=== PATIENT | female | born 1935 | race Caucasian/White ===

== ENCOUNTER 2023-04-11 10:39 | Observation (INO) | payer MEDICARE ==
--- NOTE | 2023-04-11 11:27 | CT ---
EXAMINATION TYPE: CT brain wo con DATE OF EXAM: 04/11/2023 COMPARISON: none HISTORY: right sided weakness/numbness CT DLP: [address] of the brain was performed. The ventricles, basal cisterns and sulci overlying the cerebral convexities demonstrate mild enlargem ent. There is no evidence for intracranial hemorrhage or sulcal effacement. There is decreased attenuation about the periventricular white matter and deep white matter of both c erebral hemispheres, compatible with chronic small vessel ischemia. Differential diagnosis does inclu de demyelination. No mass effects are seen.No midline shift. Osseous calvarium is intact. If symptoms persist consider MRI. IMPRESSION: 1. Age related atrophic and chronic small vessel ischemic change without acute intracranial process s een at this time.
--- NOTE | 2023-04-11 11:31 | XR ---
EXAMINATION TYPE: XR chest 2V DATE OF EXAM: 04/11/2023 COMPARISON: NONE HISTORY: Shortness of breath TECHNIQUE: Frontal and lateral views of the chest are obtained. FINDINGS: Scattered senescent parenchymal changes noted. Hyperinflation compatible with COPD. No evidence for infiltrate. No evidence for atelectasis. Heart size is stable. Mediastinal structures are stable and grossly unremarkable. No evidence for hilar prominence. Degenerative changes dorsal spine. IMPRESSION: 1. No evidence for acute pulmonary disease.
[2023-04-11] MEDS: SODIUM CHLORIDE 0.9% 500 ML 500 ML IV STA (11:33)
[2023-04-11 11:48] LABS: Basophils % (A) 1 %; Eosinophils # (A) 0.1 k/uL (0-0.7); Eosinophils % (A) 2 %; HCT 38.1 % (34.0-46.0); HGB 12.6 gm/dL (11.4-16.0); Lymphocytes # (A) 0.9 k/uL (1.0-4.8); Lymphocytes % (A) 19 %; MCHC 33.1 g/dL (31.0-37.0); MCV 90.7 fL (80.0-100.0); Mean Platelet Volume 7.2; Monocytes # (A) 0.3 k/uL (0-1.0); Monocytes % (A) 6 %; Neutrophils # (A) 3.3 k/uL (1.3-7.7); Neutrophils % (A) 70 %; Platelet Count 230 k/uL (150-450); WBC 4.7 k/uL (3.8-10.6)
[2023-04-11 11:56] LABS: INR 1.1 (<1.2); Prothrombin Time 11.5 sec (10.0-12.5)
--- NOTE | 2023-04-11 12:01 | CT ---
EXAMINATION TYPE: CT angio head neck DATE OF EXAM: 04/11/2023 COMPARISON: HISTORY: right sided weakness/numbness CT DLP: 1424.5 mGycm CONTRAST: Performed with IV Contrast, patient injected with 65 ml mL of Isovue 370. Combination Contrast CTA cervical carotids and [place] CTA cervical carotids with 3-D recons truction Contrast CTA of the cervical carotids was performed 3-D reconstruction imaging obtained at a separate workstation. Bilateral internal carotid arteries demonstrate significant tortuosity. Right carotid system: Mild plaque is seen of the right common carotid artery. There is mild plaque a lso noted at the carotid bulb. Estimated diameter reduction is 50%. ECA is patent. Right vertebra l artery appears unremarkable. Left carotid system: Mild plaque is seen of the left common carotid artery. There is mild plaque als o noted at the carotid bulb. Estimated diameter reduction is 50%. ECA is patent. Left vertebral ar trudy appears unremarkable. NASCET criteria was used in interpretation of this exam? 1. No significant diameter reduction to account for the patient's symptoms. CTA [place] with 3-D reconstruction Contrast CTA of the [place] was performed 3-D reconstruction imaging obtained at a separate workstation. Vertebrobasilar system as well as intracranial portions of the internal carotid arteries and their ma mi tributaries are patent. I do not see evidence for sizable aneurysm or vascular malformation. Pl ease note MRI provides greater sensitivity and specificity. Visualized brain appears grossly unremar kable. IMPRESSION: 1. No significant abnormality. NASCET criteria was used in interpretation of this exam?
[2023-04-11 12:11] LABS: Partial Thromboplastin Time 21.2 sec (22.0-30.0)
[2023-04-11 12:18] LABS: ALT 36 U/L (4-34); AST 51 U/L (14-36); African American GFR (CKD) >90 (>60 ml/min/1.73 sqM); Albumin 4.1 g/dL (3.5-5.0); Alkaline Phosphatase 96 U/L (38-126); Anion Gap 7 mmol/L; Blood Urea Nitrogen 14 mg/dL (7-17); Carbon Dioxide 25 mmol/L (22-30); Chloride 105 mmol/L (98-107); Creatine Kinase 50 U/L (30-135); Glucose 120 mg/dL (74-99); Non-African American GFR(CKD) 80 (>60 ml/min/1.73 sqM); Sodium 137 mmol/L (137-145); Total Bilirubin 0.6 mg/dL (0.2-1.3); Total Protein 7.5 g/dL (6.3-8.2)
--- NOTE | 2023-04-11 13:10 | ED ---
General Adult HPI - General Chief complaint: Neuro Symptoms/Deficit Stated complaint: Neuro sym Time Seen by Provider: 04/11/23 10:40 Source: patient, RN notes reviewed, old records reviewed Mode of arrival: ambulatory Limitations: no limitations - History of Present Illness Initial comments: This an 87-year-old female presents to the emergency department after having strokelike symptoms yesterday and again this morning. Patient states yesterday she had some slurred speech and some right arm and leg weakness. Patient states after 4 hours of rest it seemed to go away. Patient states when it came back it was after denominational this morning and she did not have any speech problems but she had problems walking because her left leg was weak and her left arm appeared to be weak. Patient states currently she has no symptoms whatsoever. Patient denies headache patient denies any visual disturbance. Patient denies any speech disturbance or numbness or weakness currently. Patient denies chest pain palpitation difficulty breathing shortness of breath. Patient is any abdominal pain patient has nausea vomiting diarrhea - Related Data Allergies Allergy/AdvReac Type Severity Reaction Status Date / Time No Known Allergies Allergy Verified 04/11/23 10:47 Review of Systems ROS Statement: Those systems with pertinent positive or pertinent negative responses have been documented in the HPI. ROS Other: All systems not noted in ROS Statement are negative. Past Medical History Past Medical History: Dementia, Hypertension Past Surgical History: No Surgical Hx Reported General Exam - General Exam Comments Initial Comments: GENERAL: Patient is well-developed and well-nourished. Patient is nontoxic and well- hydrated and is in no acute distress. ENT: Neck is soft and supple. No significant lymphadenopathy is noted. Oropharynx is clear. Moist mucous membranes. Neck has full range of motion without eliciting any pain. EYES: The sclera were anicteric and conjunctiva were pink and moist. Extraocular movements were intact and pupils were equal round and reactive to light. Eyelids were unremarkable. PULMONARY: Unlabored respirations. Good breath sounds bilaterally. No audible rales rh onchi or wheezing was noted. CARDIOVASCULAR: There is a regular rate and rhythm without any murmurs gallops or rubs. ABDOMEN: Soft and nontender with normal bowel sounds. SKIN: Skin is clear with no lesions or rashes and otherwise unremarkable. NEUROLOGIC: Patient is alert and oriented x3. Cranial nerves II through XII are grossly intact. Motor and sensory are also intact. Normal speech, volume and content. Symmetrical smile. NIH is 0 MUSCULOSKELETAL: Normal extremities with adequate strength and full range of motion. LYMPHATICS: No significant lymphadenopathy is noted PSYCHIATRIC: Normal psychiatric evaluation. Limitations: no limitations Course Vital Signs 04/11/23 04/11/23 04/11/23 10:42 11:30 11:47 Temperature 97.9 F 98.0 F Pulse Rate 62 65 66 Respiratory 18 17 16 Rate Blood Pressure 175/101 188/94 165/88 O2 Sat by Pulse 98 97 97 Oximetry 04/11/23 04/11/23 04/11/23 12:02 12:17 12:32 Temperature 97.8 F Pulse Rate 66 67 68 Respiratory 17 17 18 Rate Blood Pressure 159/86 157/87 155/84 O2 Sat by Pulse 96 95 96 Oximetry 04/11/23 12:47 Temperature 97.6 F Pulse Rate 69 Respiratory 15 Rate Blood Pressure 154/83 O2 Sat by Pulse 95 Oximetry Medical Decision Making - Medical Decision Making EKG was interpreted by myself EKG showed a sinus rhythm at 62 bpm IN was 139 QRS is 80 QT interval is 414 QTc is 418. Patient EKG shows no ST segment ovation or depression. Was pt. sent in by a medical professional or institution (, PA, VISUAL MERCHANDISING SPECIALIST, urgent care, hospital, or retirement...) When possible be specific @ -No Did you speak to anyone other than the patient for history (EMS, parent, family, police, friend...)? What history was obtained from this source @ -The granddaughter gave a lot of the history Did you review nursing and triage notes (agree or disagree)? Why? @ -I reviewed and agree with nursing and triage notes Were old charts reviewed (outside hosp., previous admission, EMS record, old EKG, old radiological studies, urgent care reports/EKG's, retirement records)? Report findings @ -I reviewed old charts and prior lab work on this patient prior radiological studies Differential Diagnosis (chest pain, altered mental status, abdominal pain women, abdominal pain men, vaginal bleeding, weakness, fever, dyspnea, syncope, headache, dizziness, GI bleed, back pain, seizure, CVA, palpatations, mental health, musculoskeletal)? @ -Differential CVA Ischemic stroke, hemorrhagic stroke, brain tumor, atypical migraine, Wernicke's encephalopathy, seizure, multiple sclerosis, meningitis, encephalitis, hypoglycemia, Guillain-Perez, electrolytes disturbance, myasthenia gravis.... This is not meant to be an all-inclusive list EKG interpreted by me (3pts min.). @ -As above X-rays interpreted by me (1pt min.). @ -None done CT interpreted by me (1pt min.). @ -CT of the brain shows no acute abnormality CTA of the brain shows no acute abnormality. U/S interpreted by me (1pt. min.). @ -None done What testing was considered but not performed or refused? (CT, X-rays, U/S, labs)? Why? @ -None What meds were considered but not given or refused? Why? @ -None Did you discuss the management of the patient with other professionals (professionals i.e. , PA, VISUAL MERCHANDISING SPECIALIST, lab, RT, psych nurse, social and human services assistant, criminal justice lawyer, teacher, police or patrol park officer, watch case polisher)? Give summary @ -I spoke with [facility] hospitalist and they agreed admit the patient under the patient I wrote admitting orders Was smoking cessation discussed for >3mins.? @ -No Was critical care preformed (if so, how long)? @ -No Were there social determinants of health that impacted care today? How? (Homelessness, low income, unemployed, alcoholism, drug addiction, transportation, low edu. Level, literacy, decrease access to med. care, fpc, rehab)? @ -No Was there de-escalation of care discussed even if they declined (Discuss DNR or withdrawal of care, Hospice)? DNR status @ -No What co-morbidities impacted this encounter? (DM, HTN, Smoking, COPD, CAD, Cancer, CVA, ARF, Chemo, Hep., AIDS, mental health diagnosis, sleep apnea, morbid obesity)? @ -None Was patient admitted / discharged? Hospital course, mention meds given and route, prescriptions, significant lab abnormalities, going to OR and other pertinent info. @ -Patient came in had a CT CTA of the head and neck and all were normal. Patient's lab work was also normal. Patient was asymptomatic throughout her stay Undiagnosed new problem with uncertain prognosis? @ -No Drug Therapy requiring intensive monitoring for toxicity (Heparin, Nitro, Insulin, Cardizem)? @ -No Were any procedures done? @ -No Diagnosis/symptom? @ -TIA Acute, or Chronic, or Acute on Chronic? @ -Acute Uncomplicated (without systemic symptoms) or Complicated (systemic symptoms)? @ -Complicated Side effects of treatment? @ -No Exacerbation, Progression, or Severe Exacerbation? @ -No Poses a threat to life or bodily function? How? (Chest pain, [place], [place], pneumonia, PE, COPD, DKA, ARF, appy, cholecystitis, CVA, Diverticulitis, Homicidal, Suicidal, threat to staff... and all critical care pts) @ -Yes if this were to progress to a stroke could lead to morbidity and mortality - Lab Data Result diagrams: 04/11/23 11:10 04/11/23 11:10 Lab Results 04/11/23 04/11/23 04/11/23 Range/Units 11:10 11:10 11:10 WBC 4.7 (3.8-10.6) k/uL RBC 4.20 (3.80-5.40) m/uL Hgb 12.6 (11.4-16.0) gm/dL Hct 38.1 (34.0-46.0) % MCV 90.7 (80.0-100.0) fL MCH 30.0 (25.0-35.0) pg MCHC 33.1 (31.0-37.0) g/dL RDW 14.0 (11.5-15.5) % Plt Count 230 (150-450) k/uL MPV 7.2 Neutrophils % 70 % Lymphocytes % 19 % Monocytes % 6 % Eosinophils % 2 % Basophils % 1 % Neutrophils # 3.3 (1.3-7.7) k/uL Lymphocytes # 0.9 L (1.0-4.8) k/uL Monocytes # 0.3 (0-1.0) k/uL Eosinophils # 0.1 (0-0.7) k/uL Basophils # 0.0 (0-0.2) k/uL PT 11.5 (10.0-12.5) sec INR 1.1 (<1.2) APTT 21.2 L (22.0-30.0) sec Sodium 137 (137-145) mmol/L Potassium 4.0 (3.5-5.1) mmol/L Chloride 105 (98-107) mmol/L Carbon Dioxide 25 (22-30) mmol/L Anion Gap 7 mmol/L BUN 14 (7-17) mg/dL Creatinine 0.69 (0.52-1.04) mg/dL Est GFR (CKD-EPI)AfAm >90 (>60 ml/min/1.73 sqM) Est GFR (CKD-EPI)NonAf 80 (>60 ml/min/1.73 sqM) Glucose 120 H (74-99) mg/dL Calcium 9.0 (8.4-10.2) mg/dL Total Bilirubin 0.6 (0.2-1.3) mg/dL AST 51 H (14-36) U/L ALT 36 H (4-34) U/L Alkaline Phosphatase 96 (38-126) U/L Creatine Kinase 50 (30-135) U/L Troponin I (0.000-0.034) ng/mL Total Protein 7.5 (6.3-8.2) g/dL Albumin 4.1 (3.5-5.0) g/dL 04/11/23 Range/Units 11:10 WBC (3.8-10.6) k/uL RBC (3.80-5.40) m/uL Hgb (11.4-16.0) gm/dL Hct (34.0-46.0) % MCV (80.0-100.0) fL MCH (25.0-35.0) pg MCHC (31.0-37.0) g/dL RDW (11.5-15.5) % Plt Count (150-450) k/uL MPV Neutrophils % % Lymphocytes % % Monocytes % % Eosinophils % % Basophils % % Neutrophils # (1.3-7.7) k/uL Lymphocytes # (1.0-4.8) k/uL Monocytes # (0-1.0) k/uL Eosinophils # (0-0.7) k/uL Basophils # (0-0.2) k/uL PT (10.0-12.5) sec INR (<1.2) APTT (22.0-30.0) sec Sodium (137-145) mmol/L Potassium (3.5-5.1) mmol/L Chloride (98-107) mmol/L Carbon Dioxide (22-30) mmol/L Anion Gap mmol/L BUN (7-17) mg/dL Creatinine (0.52-1.04) mg/dL Est GFR (CKD-EPI)AfAm (>60 ml/min/1.73 sqM) Est GFR (CKD-EPI)NonAf (>60 ml/min/1.73 sqM) Glucose (74-99) mg/dL Calcium (8.4-10.2) mg/dL Total Bilirubin (0.2-1.3) mg/dL AST (14-36) U/L ALT (4-34) U/L Alkaline Phosphatase (38-126) U/L Creatine Kinase (30-135) U/L Troponin I <0.012 (0.000-0.034) ng/mL Total Protein (6.3-8.2) g/dL Albumin (3.5-5.0) g/dL Critical Care Time Critical Care Time: Yes Total Critical Care Time: 35 Disposition Clinical Impression: Transient cerebral ischemia Disposition: ADMITTED IP TO THIS HOSP Referrals: Keiry Ordoñez MD [Primary Care Provider] - 1-2 days Time of Disposition: 13:10
[2023-04-11] MEDS: ASPIRIN 325 MG TAB PO STA (13:29)
[2023-04-11] MEDS ORDERED: NALOXONE 0.4 MG/ML 1 ML VIAL IV PRN (13:40)
--- NOTE | 2023-04-11 14:10 | P.HPIM ---
History of Present Illness H&P Date: 04/11/23 Chief Complaint: Right-sided weakness * 87-year-old patient with past medical history significant for hypertension, hyperlipidemia presents to the emergency department after strokelike symptoms. Patient states initially his symptoms started yesterday when she had difficulty moving her right leg. This was accompanied by some slurred speech right arm and leg weakness. Symptoms improved after patient rested for few hours. Patient said earlier today this morning when she was coming back from discharge she noted that she again have trouble in her leg however this time the left leg appeared to be weak. Patient denied any associated headache, blurred vision, nausea, vomiting or numbness. Workup initiated in the ER included a CT head as well as CT angio head and neck which was negative for large vessel occlusion. CBC obtained showed WBC 4.7 hemoglobin 12.6. Count of 230 INR 1.1 serum chemistries sodium 137 potassium 4, dicer 25 BUN 14 creatinine 0.69 ALT 36 AST 51. Patient to be admitted to medical floor with workup to rule out TIA REVIEW OF SYSTEMS: Lower extremity weakness, speech impairment resolved CONSTITUTIONAL: No fever, no malaise, no fatigue. HEENT: No recent visual problems or hearing problems. Denied any sore throat. CARDIOVASCULAR: No chest pain, orthopnea, PND, no palpitations, no syncope. PULMONARY: No shortness of breath, no cough, no hemoptysis. GASTROINTESTINAL: No diarrhea, no nausea, no vomiting, no abdominal pain. NEUROLOGICAL: Lower extremity weakness, speech impairment resolved HEMATOLOGICAL: Denies any bleeding or petechiae. GENITOURINARY: Denies any burning micturition, frequency, or urgency. MUSCULOSKELETAL/RHEUMATOLOGICAL: Denies any joint pain, swelling, or any muscle pain. ENDOCRINE: Denies any polyuria or polydipsia. PHYSICAL EXAMINATION: GENERAL: The patient is alert and oriented x3, not in any acute distress. Well developed, well nourished. HEENT: Pupils are round and equally reacting to light. EOMI. No scleral icterus. No conjunctival pallor. Normocephalic, atraumatic. No pharyngeal erythema. No thyromegaly. CARDIOVASCULAR: S1 and S2 present. No murmurs, rubs, or gallops. PULMONARY: Chest is clear to auscultation, no wheezing or crackles. ABDOMEN: Soft, nontender, nondistended, normoactive bowel sounds. No palpable organomegaly. MUSCULOSKELETAL: No joint swelling or deformity. EXTREMITIES: No cyanosis, clubbing, or pedal edema. NEUROLOGICAL: Gross neurological examination did not reveal any focal deficits. SKIN: No rashes. Past Medical History Past Medical History: Dementia, Hypertension Past Surgical History: No Surgical Hx Reported Medications and Allergies Allergies Allergy/AdvReac Type Severity Reaction Status Date / Time No Known Allergies Allergy Verified 04/11/23 10:47 Physical Exam Vitals: Vital Signs Temp Pulse Resp BP Pulse Ox 04/11/23 13:30 69 16 169/89 96 04/11/23 13:15 98.0 F 65 18 168/89 96 04/11/23 13:05 67 16 163/79 95 04/11/23 12:47 97.6 F 69 15 154/83 95 04/11/23 12:32 68 18 155/84 96 04/11/23 12:17 67 17 157/87 95 04/11/23 12:02 97.8 F 66 17 159/86 96 04/11/23 11:47 66 16 165/88 97 04/11/23 11:30 98.0 F 65 17 188/94 97 04/11/23 10:42 97.9 F 62 18 175/101 98 Intake and Output 04/10/23 04/11/23 04/11/23 22:59 06:59 14:59 Other: Weight 63.911 kg Results CBC & Chem 7: 04/11/23 11:10 04/11/23 11:10 Labs: Abnormal Lab Results - Last 24 Hours (Table) 04/11/23 04/11/23 04/11/23 Range/Units 11:10 11:10 11:10 Lymphocytes # 0.9 L (1.0-4.8) k/uL APTT 21.2 L (22.0-30.0) sec Glucose 120 H (74-99) mg/dL AST 51 H (14-36) U/L ALT 36 H (4-34) U/L Assessment and Plan Assessment: Assessment and plan Right lower extremity weakness rule out CVA Hypertension Hyperlipidemia * Workup initiated including CT head, CTA angio head and neck negative for large vessel occlusion. Neurology consulted, continue neurochecks continue aspirin, Lipitor * In regards to hypertension allow permissive hypertension, continue to monitor vitals * In regards to hyperlipidemia continue Lipitor * Physical therapy Occupational Therapy evaluation * CODE STATUS is full code Time with Patient: Greater than 30
[2023-04-11] MEDS: SODIUM CHLORIDE 0.9% 1,000 ML IV SCH (14:26)
[2023-04-11] MEDS: ATORVASTATIN 40 MG TAB PO SCH (20:34)
[2023-04-11 20:53] VITALS: RESP 16
[2023-04-12] MEDS: ASPIRIN 325 MG TAB PO SCH (08:45)
[2023-04-12] MEDS: ENOXAPARIN 40 MG/0.4 ML SYRINGE SQ SCH (08:45)
[2023-04-12 09:23] LABS: LDL Cholesterol,Calculated 152.9 mg/dL (0.0-131.0); VLDL Calculation 17.64 mg/dL (5.00-40.00)
[2023-04-12] MEDS: ONDANSETRON 4 MG/2 ML VIAL IVP PRN (10:01)
--- NOTE | 2023-04-12 11:59 | P.CNNES ---
History of Present Illness Consult date: 04/12/23 Requesting physician: Sharad Blackwell Reason for Consult: TIA History of Present Illness: Patient is a 87-year-old right handed female with history of hypertension, hyperlipidemia, came to the hospital yesterday at 10:39 AM for symptoms of possible stroke. Patient states her stroke symptoms started 2 days ago, on . She woke up at 8 in the morning and was fine. However at around 10 or 11 AM, she noticed that she has loss of control of her right arm and right leg. She took a nap from 12 noon until 3 PM and when she woke up, she was feeling much better although not back to baseline. She went to sleep at 8 PM. Next morning, on Wednesday, which is yesterday, she woke up and was feeling better, but still slight symptoms on the right side. However when she went to the adventism, she started dragging her right leg and noticed some slurred speech, therefore she was brought to the hospital. Vital signs on arrival blood pressure 175/101, pulse rate 62 temperature 97.9. Blood test shows normal CBC, PT PTT, normal basic metabolic panel. Renal functions are normal. AST 51, ALT 36, both mildly elevated. Troponin is negative, CK is [address] head revealed age-related atrophic and chronic small vessel ischemic change without acute intracranial process. I personally reviewed CT head, agree with the findings. On my review, there is evidence of an old lacunar in the left anterior basal ganglia region. Chest x-ray and EKG are normal. Patient takes lisinopril 10 mg twice daily and multivitamins. Patient walks by herself, does not use any assistive device. She lives with her son and his future . Patient has history of hypertension, hyperlipidemia, but she does not take any cholesterol medication, as she saw the potential side effects and got concerned and did not take cholesterol medication. She admits to taking niacin tablets, but her home medication list does not state. She denies diabetes, tobacco or alcohol use. Patient does not take any antiplatelet medication at home. Patient states that today she feels slightly more difficulty with walking, unsteady and dizzy while walking. She can hardly right with the right hand. Review of Systems Constitutional: Denies chills, Denies fever Eyes: denies blurred vision, denies diplopia, denies pain, denies loss of vision Ears: deny: decreased hearing, ear discharge Ears, nose, mouth and throat: Denies headache, Denies sore throat, Denies vertigo Cardiovascular: Reports lightheadedness, Denies chest pain, Denies shortness of breath Respiratory: Denies cough, Denies excessive sputum Gastrointestinal: Reports nausea, Denies abdominal pain, Denies diarrhea, Denies vomiting Genitourinary: Denies dysuria, Denies hematuria, Denies urgency, Denies urinary frequency Musculoskeletal: Denies low back pain, Denies myalgias, Denies neck pain Integumentary: Denies pruritus, Denies rash Neurological: Reports as per HPI Psychiatric: Reports memory loss, Denies anxiety, Denies depression Hematologic/Lymphatic: Denies easy bleeding, Denies easy bruising Past Medical History Past Medical History: Hyperlipidemia, Hypertension History of Any Multi-Drug Resistant Organisms: None Reported Past Surgical History: No Surgical Hx Reported Past Psychological History: No Psychological Hx Reported Smoking Status: Never smoker Medications and Allergies Home Medications Medication Instructions Recorded Confirmed Type Multivitamins, Thera [Multivitamin 1 tab PO DAILY 04/11/23 04/11/23 History (formulary)] lisinopriL [Zestril] 10 mg PO BID 04/11/23 04/11/23 History Allergies Allergy/AdvReac Type Severity Reaction Status Date / Time No Known Allergies Allergy Verified 04/11/23 14:58 Physical Examination - Vital Signs Vital Signs: Vital Signs Temp Pulse Pulse Resp BP BP BP 04/12/23 07:00 98.0 F 60 16 148/76 04/12/23 00:42 97.9 F 68 16 164/77 04/11/23 19:25 97.9 F 68 16 185/84 04/11/23 17:37 98.0 F 66 15 182/76 04/11/23 17:09 98.7 F 66 18 172/84 04/11/23 16:12 98.0 F 65 16 168/86 04/11/23 15:12 66 14 147/78 04/11/23 14:32 65 186 H 150/74 04/11/23 14:15 97.8 F 68 18 150/80 04/11/23 13:30 69 16 169/89 04/11/23 13:15 98.0 F 65 18 168/89 04/11/23 13:05 67 16 163/79 04/11/23 12:47 97.6 F 69 15 154/83 04/11/23 12:32 68 18 155/84 04/11/23 12:17 67 17 157/87 04/11/23 12:02 97.8 F 66 17 159/86 04/11/23 11:47 66 16 165/88 04/11/23 11:30 98.0 F 65 17 188/94 Pulse Ox 04/12/23 07:00 97 04/12/23 00:42 97 04/11/23 19:25 95 04/11/23 17:37 97 04/11/23 17:09 97 04/11/23 16:12 95 04/11/23 15:12 95 04/11/23 14:32 96 04/11/23 14:15 96 04/11/23 13:30 96 04/11/23 13:15 96 04/11/23 13:05 95 04/11/23 12:47 95 04/11/23 12:32 96 04/11/23 12:17 95 04/11/23 12:02 96 04/11/23 11:47 97 04/11/23 11:30 97 Intake and Output 04/11/23 04/12/23 04/12/23 22:59 06:59 14:59 Other: # Voids 2 1 Weight 63.911 kg Patient is an elderly female, very pleasant, in no acute distress. Patient is alert awake oriented to time place and person. Speech is mildly dysarthric and language functions are normal. Patient can name and repeat very well. No aphasia, although patient has mild dysarthria. Attention, concentration and fund of knowledge is adequate. On cranial nerve examination, pupils are equal, round and reacting to light, visual gonzales are full on confrontation, with no neglect on double simultaneous stimulation. Extraocular muscles are intact with no nystagmus. Patient has mild right facial asymmetry. Her tongue protrudes to the midline. Palatal elevation and sensation normal, hearing and shoulder shrug normal, facial sensation normal. On muscle strength testing, there is no pronator drift and the strength is normal in arms and legs distally and proximally, except right plug and mold finisher which may be 5-. Deep tendon reflexes are symmetric 1 at the biceps, 1 brachioradialis, 3 at the knees, 1+ ankles and plantars are downgoing bilaterally. Sensory to touch is equal with no neglect on double simultaneous stimulation. Cerebellar function showed ataxia for [id number] testing only on the right side, but not on the left. No dysdiadochokinesia. No ataxia for [id number] testing on either side. Tone and bulk of muscles normal. Gait deferred.. On general examination, there is no carotid bruit or murmur, S1-S2 audible. Chest is clear on consultation. Abdomen is soft nontender. No organomegaly, bowel sounds present. Peripheral pulses are present. No peripheral edema. Results - Laboratory Findings CBC and BMP: 04/11/23 11:10 04/11/23 11:10 Abnormal Lab Findings: Abnormal Labs 04/11/23 04/11/23 04/11/23 11:10 11:10 11:10 Lymphocytes # 0.9 L APTT 21.2 L Glucose 120 H AST 51 H ALT 36 H Cholesterol LDL Cholesterol, Calc HDL Cholesterol 04/11/23 11:10 Lymphocytes # APTT Glucose AST ALT Cholesterol 248.00 H LDL Cholesterol, Calc 152.9 H HDL Cholesterol 77.50 H Assessment and Plan Assessment: * Probable acute ischemic stroke manifesting with slurred speech, and mild right hemiparesis. Her current NIH stroke scale is 3. Patient was not a candidate for tPA, as she came outside the window for tPA. * Hypertension * Hyperlipidemia Plan: MRI of the brain without contrast, evaluate for acute CVA 2-D echo with bubble study to rule out PFO CTA head and neck showed: Mild plaque noted at the bilateral carotid bulb. Estimated diameter reduction is 50% on either side. Vertebral arteries are patent. Fasting a.m. lipid panel with cholesterol 248, LDL 152, HDL 77 and triglycerides 88. Patient was not taking any statins. Agree with starting Lipitor 40 mg daily. Hemoglobin A1c Permissive hypertension for next 24-48 hours Patient was not taking any antiplatelet medication. Patient started on aspirin 325 mg daily. As she feels her symptoms are slightly worse, we will also add Plavix 75 mg daily for 21 days. Neuro checks. Telemetry monitoring rule out any arrhythmia PT, OT, speech therapy DVT prophylaxis: Heparin 5000 units subcu every 8 hours Discussed with patient's daughter as well. Neurology will continue to follow. Thank you for the consult.
[2023-04-12] MEDS: CLOPIDOGREL 75 MG TAB PO SCH (12:46)
--- NOTE | 2023-04-12 13:00 | P.PN ---
Subjective Progress Note Date: 04/12/23 * 87-year-old patient with past medical history significant for hypertension, hyperlipidemia presents to the emergency department after strokelike symptoms. Patient states initially his symptoms started yesterday when she had difficulty moving her right leg. This was accompanied by some slurred speech right arm and leg weakness. Symptoms improved after patient rested for few hours. Patient said earlier today this morning when she was coming back from discharge she noted that she again have trouble in her leg however this time the left leg appeared to be weak. Patient denied any associated headache, blurred vision, nausea, vomiting or numbness. Workup initiated in the ER included a CT head as well as CT angio head and neck which was negative for large vessel occlusion. CBC obtained showed WBC 4.7 hemoglobin 12.6. Count of 230 INR 1.1 serum chemistries sodium 137 potassium 4, dicer 25 BUN 14 creatinine 0.69 ALT 36 AST 51. Patient to be admitted to medical floor with workup to rule out TIA * 04/12/2023: Patient seen and evaluated at bedside, daughter at bedside patient does complain of dysmetria especially right upper extremity. MRI brain ordered, echocardiogram ordered, appreciate input from neurology continue aspirin, Lipitor, Plavix. Will need physical therapy Occupational Therapy evaluation REVIEW OF SYSTEMS: Lower extremity weakness resolved, speech impairment resolved CONSTITUTIONAL: No fever, no malaise, no fatigue. HEENT: No recent visual problems or hearing problems. Denied any sore throat. CARDIOVASCULAR: No chest pain, orthopnea, PND, no palpitations, no syncope. PULMONARY: No shortness of breath, no cough, no hemoptysis. GASTROINTESTINAL: No diarrhea, no nausea, no vomiting, no abdominal pain. NEUROLOGICAL: Lower extremity weakness resolved, speech impairment resolved HEMATOLOGICAL: Denies any bleeding or petechiae. GENITOURINARY: Denies any burning micturition, frequency, or urgency. MUSCULOSKELETAL/RHEUMATOLOGICAL: Denies any joint pain, swelling, or any muscle pain. ENDOCRINE: Denies any polyuria or polydipsia. PHYSICAL EXAMINATION: GENERAL: The patient is alert and oriented x3, not in any acute distress. Well developed, well nourished. HEENT: Pupils are round and equally reacting to light. EOMI. CARDIOVASCULAR: S1 and S2 present. Murmur appreciated. PULMONARY: Chest is clear to auscultation, no wheezing or crackles. ABDOMEN: Soft, nontender, nondistended, normoactive bowel sounds. No palpable organomegaly. MUSCULOSKELETAL: No joint swelling or deformity. EXTREMITIES: No cyanosis, clubbing, or pedal edema. NEUROLOGICAL: Motor strength is 4 x 5 right upper extremity 5 x 5 right lower extremity, motor strength is 5 x 5 left upper and lower extremity SKIN: No rashes. Objective - Vital Signs Vital signs: Vital Signs Temp 98.0 F 04/12/23 07:00 Pulse 60 04/12/23 07:00 Resp 16 04/12/23 07:00 BP 148/76 04/12/23 07:00 Pulse Ox 97 04/12/23 07:00 FiO2 Intake & Output 04/11/23 04/12/23 04/12/23 18:59 06:59 18:59 Weight 63.911 kg Other: # Voids 1 - Labs CBC & Chem 7: 04/11/23 11:10 04/11/23 11:10 Labs: Abnormal Lab Results - Last 24 Hours (Table) 04/11/23 Range/Units 11:10 Cholesterol 248.00 H (0.00-200.00) mg/dL LDL Cholesterol, Calc 152.9 H (0.0-131.0) mg/dL HDL Cholesterol 77.50 H (40.00-60.00) mg/dL Assessment and Plan Assessment: Assessment and plan Right lower extremity weakness/slurred speech rule out CVA Hypertension Hyperlipidemia * Workup initiated including CT head, CTA angio head and neck negative for large vessel occlusion. Neurology consulted, continue neurochecks, MRI brain ordered continue aspirin, Lipitor * In regards to hypertension resume lisinopril 04/12/2023 * In regards to hyperlipidemia continue Lipitor * Physical therapy Occupational Therapy evaluation needed for discharge disposition * CODE STATUS is full code Time with Patient: Greater than 30
[2023-04-12] MEDS: lisinopriL 10 MG TAB PO SCH (13:44)
[2023-04-12] MEDS: MELATONIN 5 MG TABLET PO PRN (23:21)
[2023-04-12] MEDS: ACETAMINOPHEN TAB 325 MG TAB PO PRN (23:38)
--- NOTE | 2023-04-13 07:26 | CA ---
Transthoracic Echo Report Name: Alexandria Dominguez Age: 87 Gender: F : 1935 Exam Date: 04/12/2023 15:32 Exam Location: [facility] Ht (in): 64 Wt (lb): 140 Ordering Physician: Fernando Zhang MD Attending/Referring Phys: Clinical Nursing Instructor Ron Yoon RD Procedure CPT: Indications: tia Cardiac Hx: Technical Quality: Fair Contrast 1: Total Dose (mL): Contrast 2: Total Dose (mL): MEASUREMENTS (Male / Female) Normal Values 2D ECHO LV Diastolic Diameter PLAX 4.2 cm 4.2 - 5.9 / 3.9 - 5.3 cm LV Systolic Diameter PLAX 2.4 cm IVS Diastolic Thickness 0.9 cm 0.6 - 1.0 / 0.6 - 0.9 cm LVPW Diastolic Thickness 0.9 cm 0.6 - 1.0 / 0.6 - 0.9 cm LV Relative Wall Thickness 0.4 LVOT Diameter 2.0 cm Aortic Root Diameter 3.2 cm LA Systolic Diameter LX 1.8 cm 3.0 - 4.0 / 2.7 - 3.8 cm LV Diastolic Volume MOD BP 38.9 cm??? 67 - 155 / 56 - 104 cm??? LV Systolic Volume MOD BP 13.8 cm??? 22 - 58 / 19 - 49 cm??? LV Ejection Fraction MOD BP 64.4 % >= 55 % LV Cardiac Index MOD BP 1059.0 cm???/min???m??? LV Diastolic Volume MOD 4C 45.0 cm??? LV Systolic Volume MOD 4C 18.7 cm??? LV Ejection Fraction MOD 4C 58.4 % LV Cardiac Index MOD 4C 1112.1 cm???/min???m??? LV Diastolic Length 4C 6.9 cm LV Systolic Length 4C 5.8 cm LV Diastolic Volume MOD 2C 33.7 cm??? LV Systolic Volume MOD 2C 10.4 cm??? LV Ejection Fraction MOD 2C 69.1 % LV Cardiac Index MOD 2C 985.6 cm???/min???m??? LV Diastolic Length 2C 7.0 cm LV Systolic Length 2C 5.8 cm LA Volume 34.3 cm??? 18 - 58 / 22 - 52 cm??? LA Volume Index 20.1 cm???/m??? 16 - 28 cm???/m??? DOPPLER AV Peak Velocity 265.5 cm/s AV Peak Gradient 28.2 mmHg AV Mean Velocity 191.3 cm/s AV Mean Gradient 16.7 mmHg AV Velocity Time Integral 60.7 cm AI Peak Velocity 325.7 cm/s AI Peak Gradient 42.4 mmHg AI Pressure Half Time 710.6 ms LVOT Peak Velocity 94.3 cm/s LVOT Peak Gradient 3.6 mmHg LVOT Velocity Time Integral 26.4 cm LVOT Stroke Volume 85.3 cm??? LVOT Stroke Volume Index 50.7 ml/m??? LVOT Cardiac Index 3607.0 cm???/min???m??? AV Area Cont Eq vti 1.4 cm??? AV Area Cont Eq pk 1.1 cm??? MV Peak Velocity 139.1 cm/s MV Peak Gradient 7.7 mmHg MV Mean Velocity 65.8 cm/s MV Mean Gradient 2.3 mmHg MV Velocity Time Integral 45.5 cm Mitral E Point Velocity 97.4 cm/s Mitral A Point Velocity 121.6 cm/s Mitral E to A Ratio 0.8 MV Deceleration Time 328.4 ms MV E' Velocity 6.8 cm/s Mitral E to MV E' Ratio 14.3 TR Peak Velocity 233.1 cm/s TR Peak Gradient 21.7 mmHg Right Ventricular Systolic Press 26.7 mmHg PV Peak Velocity 93.9 cm/s PV Peak Gradient 3.5 mmHg FINDINGS Left Ventricle Normal LV size and wall thickness. Left ventricular ejection fraction is estimated at 55-60 %.normal left ventricular wall motion. Right Ventricle Normal right ventricular size. Right Atrium Normal right atrial size. Left Atrium Normal left atrial size. Negative agitated saline study. Mitral Valve Moderate MV calcification. No mitral stenosis. Mild mitral regurgitation. Aortic Valve Moderate AV calcification. AV peak gradient= 28.2mmHg. Mean gradient= 16.7mmHg. mild to moderate AI. Mild aortic stenosis Tricuspid Valve Structurally normal tricuspid valve. Mild TR. Pulmonic Valve Pulmonic valve not well visualized. No pulmonic regurgitation. Pericardium No pericardial effusion. Aorta Normal size aortic root. CONCLUSIONS Negative bubble study with no evidence of shunting. Normal left ventricular size and systolic function Mild mitral and tricuspid regurgitation Mild to moderate aortic regurgitation and mild aortic stenosis Previewed by: Dr. Farhad Duncan MD (Electronically Signed) Final Date: 13 April 2023 07:25
[2023-04-13 08:36] VITALS: TEMP 98
[2023-04-13 08:52] LABS: BUN/Creat Ratio 14.75 Ratio (12.00-20.00); Blood Urea Nitrogen 11.8 mg/dL (9.0-27.0); Calcium 8.6 mg/dL (8.7-10.3); Carbon Dioxide 24.5 mmol/L (21.6-31.8); Chloride 105 mmol/L (96-109); Glucose 96 mg/dL (70-110); Potassium 3.7 mmol/L (3.5-5.5); Sodium 142 mmol/L (135-145)
--- NOTE | 2023-04-13 11:05 | MR ---
EXAMINATION TYPE: MR brain wo con DATE OF EXAM: 04/13/2023 COMPARISON: NONE HISTORY: Paresthesia, TIA. TECHNIQUE: T1-weighted sagittal, T2, FLAIR, and diffusion axial, and T2 coronal coronal views of the brain are submitted. FINDINGS: There is diffusion restriction within the left basal ganglia extending into the centrum semiovale com patible with acute ischemia. Measures approximately 1.2 cm in AP dimension. No mass effect. Moderate degenerative change. Additional focal confluent areas of abnormal signal in the white matter are nonspecific but most typical of remote microvascular ischemia. Changes of chronic sinusitis with nasal septal deviation. Orbits are symmetric. Additional punctate a reas of abnormal signal involving the basal ganglia may represent tiny remote lacunar infarct or prom inent Virchow-Leighton spaces. Report called to the patients nurse Luis F at 11:00 AM 04/13/2023. Craniocervical junction maintained. Sella turcica has a normal appearance. IMPRESSION: 1. There is a small area of acute ischemia involving the left basal ganglia and deep white matter/edda trum semiovale.
[2023-04-13 12:35] VITALS: BP 146/77; PULSE 74
[2023-04-14] MEDS ORDERED: ASPIRIN 81 MG PO SCH (09:00)
--- NOTE | 2023-04-15 04:30 | P.DS ---
Providers Date of admission: 04/11/23 13:11 Expected date of discharge: 04/13/23 Attending physician: Neena Eli Consults: 04/11/23 13:11 Consult Physician Routine Consulting Provider: Jose Silva Consult Reason/Comments: TIA Do you want consulting provider notified?: Yes Primary care physician: Keiry Ordoñez Hospital Course: Final diagnosis Right lower extremity weakness/slurred speech secondary to acute CVA Hypertension Hyperlipidemia GI prophylaxis DVT prophylaxis Full code Discharge disposition Patient is being discharged in a stable condition with guarded prognosis to home. Patient will follow-up with Dr. Ordoñez in the outpatient setting upon discharge. Patient is to continue with outpatient follow-up with neurology as scheduled. Total time taken is greater than 35 minutes. Hospital course This is a 87-year-old female who was recently admitted with right-sided weakness and slurring of speech with concerns of CVA versus TIA. Patient had resolution of symptoms and underwent neurological workup including MRI of the brain which confirmed acute CVA. Patient to continue with neurology follow-up in the outpatient setting and current medications. Patient also takes a number of dytz-[id number]-[id number] herbal supplements and discussed with the patient along with daughter at the bedside with concerns of overmedicating and also concerns of reactions with other medications recommending holding all supplements other than a multivitamin and discussing further with primary care provider. Patient was evaluated by physical therapy and arranging for home care in the outpatient setting. Patient has been cleared by consultations for discharge. Please refer to consultation notes for further HPI. Patient being started on statin therapy along with aspirin 162 mg and recommend close monitoring of cholesterol. Patient has been instructed to follow-up with primary care provider on discharge. Currently no reports of chest pain, shortness of breath, or palpitations. Patient is afebrile. No reports of nausea or vomiting and patient is tolerating diet. Patient will be discharged home today. Guarded prognosis Physical exam: Gen: This is a 87-year-old female who is awake, alert and oriented x 3, well- developed, well-nourished HEENT: Head is atraumatic, normocephalic. Pupils equal, round. Sclerae is anicteric. NECK: Supple. No JVD. No lymphadenopathy. No thyromegaly. LUNGS: Clear to auscultation. No wheezes or rhonchi. No intercostal retractions. HEART: Regular rate and rhythm. No murmur. ABDOMEN: Soft. Bowel sounds are present. No masses. No tenderness. EXTREMITIES: No pedal edema. No calf tenderness. NEUROLOGICAL: Patient is awake, alert and oriented x3. Cranial nerves 2 through 12 are grossly intact. Mild generalized weakness Please refer to medication reconciliation sheet for a list of medications. The impression and plan of care has been dictated by Kim Valadez, Nurse Practitioner as directed. Dr. Sreedhar MD I have performed a history and examination and MDM of this patient, discussed the same with the dictator, and agree with the dictator's assessment and plan as written ,documented as a scribe. Based on total visit time, I have performed more than 50% of the visit. Patient Condition at Discharge: Good Plan - Discharge Summary New Discharge Prescriptions: New Acetaminophen Tab [Tylenol] 650 mg PO Q6HR PRN tab PRN Reason: Mild Pain Or Fever > 100.5 Ondansetron Odt [Zofran Odt] 4 mg PO Q8HR PRN #20 tab PRN Reason: Nausea Aspirin 162 mg PO DAILY 30 Days #60 tab Atorvastatin [Lipitor] 40 mg PO HS #30 tab Clopidogrel [Plavix] 75 mg PO DAILY 21 Days #21 tab Continue lisinopriL [Zestril] 10 mg PO BID Multivitamins, Thera [Multivitamin (formulary)] 1 tab PO DAILY Discharge Medication List Multivitamins, Thera [Multivitamin (formulary)] 1 tab PO DAILY 04/11/23 [History] lisinopriL [Zestril] 10 mg PO BID 04/11/23 [History] Acetaminophen Tab [Tylenol] 650 mg PO Q6HR PRN tab 04/13/23 [Rx] Aspirin 162 mg PO DAILY 30 Days #60 tab 04/13/23 [Rx] Atorvastatin [Lipitor] 40 mg PO HS #30 tab 04/13/23 [Rx] Clopidogrel [Plavix] 75 mg PO DAILY 21 Days #21 tab 04/13/23 [Rx] Ondansetron Odt [Zofran Odt] 4 mg PO Q8HR PRN #20 tab 04/13/23 [Rx] Follow up Appointment(s)/Referral(s): [facility], [NON-STAFF] - 1 Week Kira Matthews MD [Medical Doctor] - 1 Week (please call and make appointment, (new patient) ) Keiry Ordoñez MD [Primary Care Provider] - 04/15/23 11:00 am Patient Instructions/Handouts: Stroke (DC), Stroke (GEN) Activity/Diet/Wound Care/Special Instructions: Activity limited until follow-up Follow-up with primary care provider on discharge Follow-up neurology outpatient Continue taking medications only as prescribed Hold other herbal supplements and continue with multivitamin and discuss further with primary care provider Continue taking statin for high cholesterol and avoid niacin and follow-up with Dr. Ordoñez regarding repeat labs in the next few months to monitor a fasting lipid panel Discharge Disposition: HOME WITH HOME HEALTH SERVICES
== END 2023-04-13 13:59 | disposition home health service (06) ==
LOC: EC 10:39 → 6NMEDSUR 13:11
PROVIDERS: ADMIT Hospitalist; ATTEND Hospitalist
DX: G45.9 Transient cerebral ischemic attack, unspecified (principal); R47.81 Slurred speech; M62.81 Muscle weakness (generalized); R29.703 NIHSS score 3; F03.90 Unspecified dementia, unspecified severity, without behavioral disturbance, psychotic disturbance, mood disturbance, and anxiety; I10 Essential (primary) hypertension; E78.5 Hyperlipidemia, unspecified; Z79.899 Other long term (current) drug therapy
CPT/HCPCS: 96361; 96372; 96374; 96375; 99285; 36415; 93005; 93306; 97162; 97166; 92523; 80061; 80053; 80048; 82607; 82550; 82746; 84484; 85025; 85610; 85730; 83036; 71046; 70496; 70450; 70498; 70551; G0378 ×3; J2405 ×2; J1650 ×2; Q9967

== ENCOUNTER 2023-07-24 20:25 | Inpatient (IN) | payer MEDICARE ==
[2023-07-24] MEDS: MECLIZINE 12.5 MG TAB PO STA (21:43)
[2023-07-24] MEDS: hydrALAZINE HCL 20 MG/ML 1 ML VIAL IVP STA ×2 (21:43→22:55)
[2023-07-24] MEDS: ONDANSETRON 4 MG/2 ML VIAL IVP STA (21:44)
[2023-07-24] MEDS: SODIUM CHLORIDE 0.9% 500 ML 500 ML IV STA (21:44)
--- NOTE | 2023-07-24 21:47 | CT ---
EXAMINATION TYPE: CT brain wo con CT DLP: 1228.5 mGycm, Automated exposure control for dose reduction was used. DATE OF EXAM: 07/24/2023 9:12 PM COMPARISON: 04/11/2023.. CLINICAL INDICATION:Female, 87 years old with history of dizziness, dizziness TECHNIQUE: Brain: Axial CT images of the brain were obtained with coronal and sagittal reformats created and rev iewed. Contrast used: None. Oral contrast used: None. FINDINGS: Brain: Extra-axial spaces: No abnormal extra-axial fluid collections. Ventricular system: Within normal limits Cerebral parenchyma: New from 04/11/2023 hypodense area in the left handley radiata. No acute intraparen chymal hemorrhage or mass effect. The mcconnell-white junction is well differentiated. Cerebellum: Unremarkable. Mass effect: No evidence of midline shift. Intracranial vasculature: unremarkable Soft tissues: Normal. Calvarium/osseous structures: No depressed skull fracture. Paranasal sinuses and mastoid air cells: Mild scattered paranasal sinus disease. Visualized orbits: Orbital contents are intact. IMPRESSION: New from 04/11/2023 hypodense area in the left handley radiata further evaluation with MRI recommended. Findings compatible with age-indeterminate CVA
[2023-07-24 21:48] LABS: Basophils % (A) 1 %; Eosinophils # (A) 0.1 k/uL (0-0.7); Eosinophils % (A) 1 %; HCT 34.7 % (34.0-46.0); HGB 11.3 gm/dL (11.4-16.0); Lymphocytes # (A) 0.7 k/uL (1.0-4.8); Lymphocytes % (A) 15 %; MCH 29.5 pg (25.0-35.0); MCHC 32.7 g/dL (31.0-37.0); MCV 90.4 fL (80.0-100.0); Mean Platelet Volume 7.3; Monocytes # (A) 0.3 k/uL (0-1.0); Monocytes % (A) 6 %; Neutrophils # (A) 3.7 k/uL (1.3-7.7); Neutrophils % (A) 75 %; Platelet Count 253 k/uL (150-450); RBC 3.84 m/uL (3.80-5.40); RDW 14.3 % (11.5-15.5); WBC 4.9 k/uL (3.8-10.6)
--- NOTE | 2023-07-24 21:50 | XR ---
EXAMINATION TYPE: XR chest 2V DATE OF EXAM: 07/24/2023 9:13 PM CLINICAL INDICATION:Female, 87 years old with history of dizziness; [facility] COMPARISON: Chest radiographs from 04/11/2023. TECHNIQUE: XR chest 2V Frontal and lateral views of the chest. FINDINGS: Lungs/Pleura: There is flattening of the diaphragm with increased lucency of the lungs. No evidence o f pneumothorax, pleural effusion or focal consolidation. Right upper lobe calcified granuloma unchang ed from prior. Pulmonary vascularity: Unremarkable. Heart/mediastinum: Cardiomediastinal silhouette is unremarkable. Musculoskeletal: No acute osseous pathology. IMPRESSION: No acute cardiopulmonary disease/process. Right upper lung calcified granuloma. COPD changes.
[2023-07-24 21:55] LABS: ALT 33 U/L (4-34); AST 40 U/L (14-36); African American GFR (CKD) 81 (>60 ml/min/1.73 sqM); Albumin 4.1 g/dL (3.5-5.0); Alkaline Phosphatase 107 U/L (38-126); Anion Gap 6 mmol/L; Blood Urea Nitrogen 21 mg/dL (7-17); Calcium 9.1 mg/dL (8.4-10.2); Carbon Dioxide 24 mmol/L (22-30); Chloride 104 mmol/L (98-107); Glucose 123 mg/dL (74-99); Non-African American GFR(CKD) 70 (>60 ml/min/1.73 sqM); Sodium 134 mmol/L (137-145); Total Bilirubin 0.6 mg/dL (0.2-1.3); Total Protein 7.2 g/dL (6.3-8.2)
[2023-07-24 22:14] LABS: Amorphous Sediment,Urine Rare /hpf; Appearance,Urine Clear (Clear); Bacteria,Urine Many /hpf; Bilirubin,Urine Negative (Negative); Blood,Urine Negative (Negative); Color,Urine Colorless; Glucose,Urine (UA) Negative (Negative); Ketones,Urine Negative (Negative); Leukocyte Esterase,Urine Large (Negative); Nitrite,Urine Negative (Negative); Protein,Urine Negative (Negative); RBC,Urine 1 /hpf (0-5); Specific Gravity,Urine 1.007 (1.001-1.035); Squamous Epithelial Cell,Urine 2 /hpf (0-4); Urobilinogen,Urine <2.0 mg/dL (<2.0); WBC,Urine 13 /hpf (0-5)
[2023-07-24] MEDS ORDERED: NALOXONE 0.4 MG/ML 1 ML VIAL IV PRN (22:59)
--- NOTE | 2023-07-24 23:04 | ED ---
Dizziness HPI - General Chief Complaint: Dizziness Stated Complaint: dizzy nausea Time Seen by Provider: 07/24/23 20:43 Source: patient Mode of arrival: ambulatory - History of Present Illness Initial Comments: 87-year-old female presenting with chief complaint of dizziness. Symptoms started this afternoon. Patient admits to nausea. Patient feels as though the room is spinning around her. She tried taking the Dramamine at home which did not alleviate her symptoms. Patient was seen here back in April for TIAs and was placed on Plavix, she was taken off of Plavix last Wednesday. She is having no numbness, tingling, weakness. No chest pain or difficulty breathing. No headache or vision or hearing changes. No abdominal pain or vomiting. Patient is hypertensive upon arrival, she has taken her daily medications as prescribed today. - Related Data Home Medications Medication Instructions Recorded Confirmed Multivitamins, Thera [Multivitamin 1 tab PO DAILY 04/11/23 04/11/23 (formulary)] lisinopriL [Zestril] 10 mg PO BID 04/11/23 04/11/23 Previous Rx's Medication Instructions Recorded Acetaminophen Tab [Tylenol] 650 mg PO Q6HR PRN tab 04/13/23 Aspirin 162 mg PO DAILY 30 Days #60 tab 04/13/23 Atorvastatin [Lipitor] 40 mg PO HS #30 tab 04/13/23 Clopidogrel [Plavix] 75 mg PO DAILY 21 Days #21 tab 04/13/23 Ondansetron Odt [Zofran Odt] 4 mg PO Q8HR PRN #20 tab 04/13/23 Allergies Allergy/AdvReac Type Severity Reaction Status Date / Time No Known Allergies Allergy Verified 07/24/23 20:38 Review of Systems ROS Statement: Those systems with pertinent positive or pertinent negative responses have been documented in the HPI. ROS Other: All systems not noted in ROS Statement are negative. Past Medical History Past Medical History: Hyperlipidemia, Hypertension History of Any Multi-Drug Resistant Organisms: None Reported Past Surgical History: No Surgical Hx Reported Past Psychological History: No Psychological Hx Reported Smoking Status: Never smoker General Exam Limitations: no limitations General appearance: alert, in no apparent distress Head exam: Present: atraumatic, normocephalic Eye exam: Present: normal appearance, PERRL, EOMI Neck exam: Present: normal inspection. Absent: meningismus Respiratory exam: Present: normal lung sounds bilaterally. Absent: respiratory distress, wheezes, rales, rhonchi, stridor Cardiovascular Exam: Present: regular rate, normal rhythm, normal heart sounds. Absent: systolic murmur, diastolic murmur, rubs, gallop, clicks Extremities exam: Present: normal inspection, full ROM Neurological exam: Present: alert, oriented X3 Expanded Patient oriented to: Present: person, place, time Speech: Present: fluid speech Cranial nerves: EOM's Intact: Normal, Tongue Deviation: Normal Sensory exam: Upper Extremity Light Touch: Normal, Lower Extremity Light Touch: Normal Motor strength exam: RUE: 5, LUE: 5, RLE: 5, LLE: 5 Eye Response: (4) open spontaneously Motor Response: (6) obeys commands Verbal Response: (5) oriented [place] Total: 15 Psychiatric exam: Present: normal affect, normal mood Skin exam: Present: warm, dry Course Vital Signs 07/24/23 07/24/23 07/24/23 20:29 22:52 23:16 Temperature 98.2 F Pulse Rate 64 63 75 Respiratory 18 18 Rate Blood Pressure 210/93 172/86 161/71 O2 Sat by Pulse 99 96 95 Oximetry 07/25/23 00:07 Temperature Pulse Rate 74 Respiratory 18 Rate Blood Pressure 169/81 O2 Sat by Pulse 97 Oximetry Medical Decision Making - Medical Decision Making Was pt. sent in by a medical professional or institution (Dr. PA, VERIFICATION REP, urgent care, hospital, or long term...) When possible be specific @ -No Did you speak to anyone other than the patient for history (EMS, parent, family, police, friend...)? What history was obtained from this source @ -[id number] Did you review nursing and triage notes (agree or disagree)? Why? @ -I reviewed and agree with nursing and triage notes Were old charts reviewed (outside hosp., previous admission, EMS record, old EKG, old radiological studies, urgent care reports/EKG's, long term records)? Report findings @ -Previous visit was reviewed Differential Diagnosis (chest pain, altered mental status, abdominal pain women, abdominal pain men, vaginal bleeding, weakness, fever, dyspnea, syncope, headache, dizziness, GI bleed, back pain, seizure, CVA, palpatations, mental health, musculoskeletal)? @ -Differential CVA Ischemic stroke, hemorrhagic stroke, brain tumor, atypical migraine, Wernicke's encephalopathy, seizure, multiple sclerosis, meningitis, encephalitis, hypoglycemia, Guillain-Perez, electrolytes disturbance, myasthenia gravis.... This is not meant to be an all-inclusive list EKG interpreted by me (3pts min.). @ -EKG shows sinus rhythm ventricular rate 66. CA interval 151. QRS 76. QT 413. QTc 426. X-rays interpreted by me (1pt min.). @ -Chest x-ray shows no acute cardiopulmonary disease process. Right upper lung calcified granuloma. COPD changes. CT interpreted by me (1pt min.). @ -CT shows new from 04/11/2023 hypodense area in the left handley radiata further evaluation with MRI recommended. Findings compatible with age-indeterminate CVA U/S interpreted by me (1pt. min.). @ -None done What testing was considered but not performed or refused? (CT, X-rays, U/S, labs)? Why? @ -None What meds were considered but not given or refused? Why? @ -None Did you discuss the management of the patient with other professionals (professionals i.e. , PA, VERIFICATION REP, lab, RT, psych nurse, social work job titles, loss prevention and safety manager, teacher, weapons electrical engineering officer, medical case manager)? Give summary @ -I spoke with Toshia Pagan of the [facility] who accepted admission Was smoking cessation discussed for >3mins.? @ -No Was critical care preformed (if so, how long)? @ -No Were there social determinants of health that impacted care today? How? (Homelessness, low income, unemployed, alcoholism, drug addiction, transportation, low edu. Level, literacy, decrease access to med. care, intermediate, rehab)? @ -No Was there de-escalation of care discussed even if they declined (Discuss DNR or withdrawal of care, Hospice)? DNR status @ -No What co-morbidities impacted this encounter? (DM, HTN, Smoking, COPD, CAD, Cancer, CVA, ARF, Chemo, Hep., AIDS, mental health diagnosis, sleep apnea, morbid obesity)? @ -Hypertension, history of TIA Was patient admitted / discharged? Hospital course, mention meds given and route, prescriptions, significant lab abnormalities, going to OR and other pertinent info. @ -87-year-old female presenting with chief complaint of dizziness that started today. Admits to nausea. No other symptoms. History and physical exam are conducted. NIH 0. EKG shows sinus rhythm, negative troponin. No leukocytosis. Hemoglobin 11.3. Brain CT shows age-indeterminate CVA. Initially hypertensive upon arrival with blood pressure of 210/93. She was given hydralazine 10 mg little improvement, she was given a second dose of hydralazine 10 mg which improved her blood pressure to 161/71. Patient will be admitted for MRI and further evaluation by neurology. Patient is agreeable with this plan. I discussed this case with my attending Dr. Mccormack Undiagnosed new problem with uncertain prognosis? @ -No Drug Therapy requiring intensive monitoring for toxicity (Heparin, Nitro, Insulin, Cardizem)? @ -No Were any procedures done? @ -No Diagnosis/symptom? @ -CVA Acute, or Chronic, or Acute on Chronic? @ -Acute Uncomplicated (without systemic symptoms) or Complicated (systemic symptoms)? @ -Complicated Side effects of treatment? @ -No Exacerbation, Progression, or Severe Exacerbation? @ -No Poses a threat to life or bodily function? How? (Chest pain, [place], [place], pneumonia, PE, COPD, DKA, ARF, appy, cholecystitis, CVA, Diverticulitis, Homicidal, Suicidal, threat to staff... and all critical care pts) @ -Yes - Lab Data Result diagrams: 07/24/23 21:30 07/24/23 21:30 Lab Results 07/24/23 07/24/23 07/24/23 Range/Units 21:30 21:30 21:30 WBC 4.9 (3.8-10.6) k/uL RBC 3.84 (3.80-5.40) m/uL Hgb 11.3 L (11.4-16.0) gm/dL Hct 34.7 (34.0-46.0) % MCV 90.4 (80.0-100.0) fL MCH 29.5 (25.0-35.0) pg MCHC 32.7 (31.0-37.0) g/dL RDW 14.3 (11.5-15.5) % Plt Count 253 (150-450) k/uL MPV 7.3 Neutrophils % 75 % Lymphocytes % 15 % Monocytes % 6 % Eosinophils % 1 % Basophils % 1 % Neutrophils # 3.7 (1.3-7.7) k/uL Lymphocytes # 0.7 L (1.0-4.8) k/uL Monocytes # 0.3 (0-1.0) k/uL Eosinophils # 0.1 (0-0.7) k/uL Basophils # 0.0 (0-0.2) k/uL Sodium 134 L (137-145) mmol/L Potassium 4.0 (3.5-5.1) mmol/L Chloride 104 (98-107) mmol/L Carbon Dioxide 24 (22-30) mmol/L Anion Gap 6 mmol/L BUN 21 H (7-17) mg/dL Creatinine 0.78 (0.52-1.04) mg/dL Est GFR (CKD-EPI)AfAm 81 (>60 ml/min/1.73 sqM) Est GFR (CKD-EPI)NonAf 70 (>60 ml/min/1.73 sqM) Glucose 123 H (74-99) mg/dL Plasma Lactic Acid Javy 1.3 (0.7-2.0) mmol/L Calcium 9.1 (8.4-10.2) mg/dL Total Bilirubin 0.6 (0.2-1.3) mg/dL AST 40 H (14-36) U/L ALT 33 (4-34) U/L Alkaline Phosphatase 107 (38-126) U/L Troponin I (0.000-0.034) ng/mL Total Protein 7.2 (6.3-8.2) g/dL Albumin 4.1 (3.5-5.0) g/dL Urine Color Urine Appearance (Clear) Urine pH (5.0-8.0) Ur Specific [place] (1.001-1.035) Urine Protein (Negative) Urine Glucose (UA) (Negative) Urine Ketones (Negative) Urine Blood (Negative) Urine Nitrite (Negative) Urine Bilirubin (Negative) Urine Urobilinogen (<2.0) mg/dL Ur Leukocyte Esterase (Negative) Urine RBC (0-5) /hpf Urine WBC (0-5) /hpf Ur Squamous Epith Cells (0-4) /hpf Amorphous Sediment (None) /hpf Urine Bacteria (None) /hpf 07/24/23 07/24/23 Range/Units 21:30 21:42 WBC (3.8-10.6) k/uL RBC (3.80-5.40) m/uL Hgb (11.4-16.0) gm/dL Hct (34.0-46.0) % MCV (80.0-100.0) fL MCH (25.0-35.0) pg MCHC (31.0-37.0) g/dL RDW (11.5-15.5) % Plt Count (150-450) k/uL MPV Neutrophils % % Lymphocytes % % Monocytes % % Eosinophils % % Basophils % % Neutrophils # (1.3-7.7) k/uL Lymphocytes # (1.0-4.8) k/uL Monocytes # (0-1.0) k/uL Eosinophils # (0-0.7) k/uL Basophils # (0-0.2) k/uL Sodium (137-145) mmol/L Potassium (3.5-5.1) mmol/L Chloride (98-107) mmol/L Carbon Dioxide (22-30) mmol/L Anion Gap mmol/L BUN (7-17) mg/dL Creatinine (0.52-1.04) mg/dL Est GFR (CKD-EPI)AfAm (>60 ml/min/1.73 sqM) Est GFR (CKD-EPI)NonAf (>60 ml/min/1.73 sqM) Glucose (74-99) mg/dL Plasma Lactic Acid [place] (0.7-2.0) mmol/L Calcium (8.4-10.2) mg/dL Total Bilirubin (0.2-1.3) mg/dL AST (14-36) U/L ALT (4-34) U/L Alkaline Phosphatase (38-126) U/L Troponin I <0.012 (0.000-0.034) ng/mL Total Protein (6.3-8.2) g/dL Albumin (3.5-5.0) g/dL Urine Color Colorless Urine Appearance Clear (Clear) Urine pH 7.0 (5.0-8.0) Ur Specific [place] 1.007 (1.001-1.035) Urine Protein Negative (Negative) Urine Glucose (UA) Negative (Negative) Urine Ketones Negative (Negative) Urine Blood Negative (Negative) Urine Nitrite Negative (Negative) Urine Bilirubin Negative (Negative) Urine Urobilinogen <2.0 (<2.0) mg/dL Ur Leukocyte Esterase Large H (Negative) Urine RBC 1 (0-5) /hpf Urine WBC 13 H (0-5) /hpf Ur Squamous Epith Cells 2 (0-4) /hpf Amorphous Sediment Rare H (None) /hpf Urine Bacteria Many H (None) /hpf Disposition Clinical Impression: Cerebrovascular accident (CVA) Disposition: ADMITTED IP TO THIS HOSP Condition: Stable Time of Disposition: 23:03
[2023-07-25] MEDS: ONDANSETRON 4 MG/2 ML VIAL IVP PRN (01:22)
[2023-07-25] MEDS: lisinopriL 10 MG TAB PO SCH (10:00)
--- NOTE | 2023-07-25 10:33 | P.HPIM ---
History of Present Illness This is a pleasant 87 years old female from home who presents because of dizziness and nausea of few days duration Patient states that recently she has been diagnosed by TIA by end april where she so her neurologist, [patient could not remember the name of the neurologist] at that time she was complaining from numbness and probably weakness in her right hand and right leg. And she was put on antiplatelet therapy, currently she is on aspirin and Plavix. She describes her dizziness as vertigo with room spinning. She denies any ear discharge or ear pain, no nose or throat problem She denies smoking alcohol or illicit drugs No change in urine or bowel habits. No chills or fever Patient at baseline uses is able to walk. She feels generally weak with no numbness. She denies smoking alcohol or illicit drugs. Vitals are stable, blood pressure was elevated on admission documented 210/93, it was high 172/87 earlier currently is 152/83 Urine analysis slightly abnormal with increased leukocyte esterase but patient has no urinary symptoms Patient has unremarkable CBC, BMP, liver enzymes, INR, troponin EKG showing sinus rhythm at [address]-T changes Chest x-ray is negative for acute process but showing COPD and calcified granuloma in the right upper lung CT of the brain showing hypodense area in the left handley radiator age indeterminant Review of Systems Review of systems CONSTITUTIONAL: No fever, no malaise, no fatigue. HEENT: No recent visual problems or hearing problems. Denied any sore throat. CARDIOVASCULAR: No orthopnea, PND, no palpitations, no syncope. PULMONARY: No shortness of breath, no cough, no hemoptysis. GASTROINTESTINAL: No diarrhea, no nausea, no vomiting, no abdominal pain. Normoactive bowel sounds. NEUROLOGICAL: No headaches, no weakness, no numbness. HEMATOLOGICAL: Denies any bleeding or petechiae. GENITOURINARY: Denies any burning micturition, frequency, or urgency. MUSCULOSKELETAL/RHEUMATOLOGICAL: Denies any joint pain, swelling, or any muscle pain. ENDOCRINE: Denies any polyuria or polydipsia. Past Medical History Past Medical History: Hyperlipidemia, Hypertension History of Any Multi-Drug Resistant Organisms: None Reported Past Surgical History: No Surgical Hx Reported Past Psychological History: No Psychological Hx Reported Smoking Status: Never smoker Medications and Allergies Home Medications Medication Instructions Recorded Confirmed Type Multivitamins, Thera [Multivitamin 1 tab PO DAILY 04/11/23 04/11/23 History (formulary)] lisinopriL [Zestril] 10 mg PO BID 04/11/23 04/11/23 History Acetaminophen Tab [Tylenol] 650 mg PO Q6HR PRN tab 04/13/23 Rx Aspirin 162 mg PO DAILY 30 Days #60 tab 04/13/23 Rx Atorvastatin [Lipitor] 40 mg PO HS #30 tab 04/13/23 Rx Clopidogrel [Plavix] 75 mg PO DAILY 21 Days #21 tab 04/13/23 Rx Ondansetron Odt [Zofran Odt] 4 mg PO Q8HR PRN #20 tab 04/13/23 Rx Allergies Allergy/AdvReac Type Severity Reaction Status Date / Time No Known Allergies Allergy Verified 07/24/23 20:38 Physical Exam Vitals: Vital Signs Temp Pulse Resp BP Pulse Ox 07/25/23 06:06 68 158/83 97 07/25/23 02:12 73 18 07/25/23 00:07 74 18 169/81 97 07/24/23 23:16 75 161/71 95 07/24/23 22:52 63 18 172/86 96 07/24/23 20:29 98.2 F 64 18 210/93 99 Intake and Output 07/24/23 07/25/23 07/25/23 22:59 06:59 14:59 Other: Weight 58.967 kg GENERAL: The patient is alert and oriented x3, not in any acute distress. Well developed, well nourished. HEENT: Pupils are round and equally reacting to light. EOMI. No scleral icterus. No conjunctival pallor. Normocephalic, atraumatic. No pharyngeal erythema. No thyromegaly. CARDIOVASCULAR: S1 and S2 present. No murmurs, rubs, or gallops. PULMONARY: Chest is clear to auscultation, no wheezing , no crackles. ABDOMEN: Soft, nontender, nondistended, normoactive bowel sounds. No palpable organomegaly. MUSCULOSKELETAL: No joint swelling or deformity. EXTREMITIES: No cyanosis, clubbing, or pedal edema. NEUROLOGICAL: Gross neurological examination did not reveal any focal deficits. SKIN: No rashes. no petechiae. Results CBC & Chem 7: 07/24/23 21:30 07/24/23 21:30 Labs: Abnormal Lab Results - Last 24 Hours (Table) 07/24/23 07/24/23 07/24/23 Range/Units 21:30 21:30 21:42 Hgb 11.3 L (11.4-16.0) gm/dL Lymphocytes # 0.7 L (1.0-4.8) k/uL Sodium 134 L (137-145) mmol/L BUN 21 H (7-17) mg/dL Glucose 123 H (74-99) mg/dL AST 40 H (14-36) U/L Ur Leukocyte Esterase Large H (Negative) Urine WBC 13 H (0-5) /hpf Amorphous Sediment Rare H (None) /hpf Urine Bacteria Many H (None) /hpf Assessment and Plan Assessment: Possible subacute versus recent stroke worsened by hypertension urgency which were present on admission Vertigo secondary to above Recent history of TIA on dual antiplatelet therapy Hyperlipidemia Plan: Resume aspirin and Plavix Neurology consult Continue antihypertensive medication with close monitoring, . Resume lisinopril 20 mg. We will add Norvasc 5 mg daily Labs and medication were reviewed.. Continue same treatment. Continue with symptomatic treatment. Resume home medication. Monitor labs and vitals. DVT and GI prophylaxis. Further recommendations as per clinical course of the patient DVT prophylaxis: Subcutaneous heparin GI Prophylaxis: Pepcid PT/OT: Pending Prognosis is guarded
[2023-07-25] MEDS: ASPIRIN 81 MG PO SCH (13:10)
[2023-07-25] MEDS: amLODIPine 5 MG TAB PO SCH (13:11)
[2023-07-25] MEDS: CLOPIDOGREL 75 MG TAB PO SCH (13:11)
--- NOTE | 2023-07-25 15:16 | P.CNNES ---
History of Present Illness Consult date: 07/25/23 Requesting physician: Stacie Storey Reason for Consult: CVA History of Present Illness: Patient is a 27-year-old right-handed female with history of hypertension, recent confirmed stroke involving left subcortical periventricular region in April 2023, came to the hospital yesterday at 8:25 PM for new onset vertigo, dizziness, nausea. Patient was discharged on aspirin 81 mg twice daily and Plavix 75 mg daily at the time of the stroke. She just stopped taking Plavix on Wednesday, 3 days prior to arrival. Patient denied any focal numbness, tingling, paralysis, slurred speech or facial droop. Patient has not had any further strokelike symptoms since discharge from the hospital. Vital signs on arrival blood pressure 210/93, which came down to 172/86, pulse rate 64 temperature 98.2. Blood test shows normal CBC, sodium 134 potassium 4.0, BUN 21, creatinine 0.78. Hepatic panel with AST 40 borderline, normal ALT. Troponin negative. UA shows large amount of leukocyte esterase and [address] head showed new from 04/11/2023, hypodense area in the left handley radiata. Further evaluation with MRI recommended. Findings compatible with age- indeterminate CVA. I personally reviewed CT head agree with the findings. However on comparing with previous MRI, this area of ischemia is in the same distribution where the stroke happened acutely on 04/13/2023. No new areas of ischemia. Visualized paranasal sinuses and EAC are clear bilaterally. EKG shows sinus rhythm. Chest x-ray showed no acute cardiopulmonary disease/process. Right upper lung calcified granuloma. COPD changes. Patient has been seen by myself on 04/13/2023 for acute ischemic stroke manifesting with slurred speech, and mild right hemiparesis. Patient was not a candidate for tPA at that time as she came outside the window for tPA. MRI of the brain at that time revealed small area of acute ischemia involving the left basal ganglia and deep white matter centrum semiovale. Patient was discharged on aspirin and Plavix 25 mg, recommended to take both medications for 21 days and then stop Plavix. Review of Systems Constitutional: Denies chills, Denies fever Eyes: denies blurred vision, denies diplopia, denies pain, denies loss of vision Ears: deny: decreased hearing, ear discharge Ears, nose, mouth and throat: Denies headache, Denies sore throat, admits to vertigo Cardiovascular: Reports lightheadedness, Denies chest pain, Denies shortness of breath Respiratory: Denies cough, Denies excessive sputum Gastrointestinal: Reports nausea, Denies abdominal pain, Denies diarrhea, Denies vomiting Genitourinary: Denies dysuria, Denies hematuria, Denies urgency, Denies urinary frequency Musculoskeletal: Denies low back pain, Denies myalgias, Denies neck pain Integumentary: Denies pruritus, Denies rash Neurological: Reports as per HPI Psychiatric: Reports memory loss, Denies anxiety, Denies depression Hematologic/Lymphatic: Admits to easy bleeding since on blood thinners, Denies easy bruising Past Medical History Past Medical History: Hyperlipidemia, Hypertension History of Any Multi-Drug Resistant Organisms: None Reported Past Surgical History: No Surgical Hx Reported Past Psychological History: No Psychological Hx Reported Smoking Status: Never smoker Medications and Allergies Home Medications Medication Instructions Recorded Confirmed Type Multivitamins, Thera [Multivitamin 1 tab PO DAILY 04/11/23 07/25/23 History (formulary)] lisinopriL [Zestril] 10 mg PO BID 04/11/23 07/25/23 History Acetaminophen Tab [Tylenol] 650 mg PO Q6HR PRN tab 04/13/23 07/25/23 Rx Aspirin 162 mg PO DAILY 30 Days #60 tab 04/13/23 07/25/23 Rx Atorvastatin [Lipitor] 40 mg PO HS #30 tab 04/13/23 07/25/23 Rx Ondansetron Odt [Zofran Odt] 4 mg PO Q8HR PRN #20 tab 04/13/23 07/25/23 Rx Fish Oil(Unknown Dose) 1 cap PO HS 07/25/23 07/25/23 History Ginkgo Biloba(Unknown Dose) 1 tab PO DAILY 07/25/23 07/25/23 History Allergies Allergy/AdvReac Type Severity Reaction Status Date / Time No Known Allergies Allergy Verified 07/25/23 14:00 Physical Examination - Vital Signs Vital Signs: Vital Signs Temp Pulse Resp BP Pulse Ox 07/25/23 06:06 68 158/83 97 07/25/23 02:12 73 18 07/25/23 00:07 74 18 169/81 97 07/24/23 23:16 75 161/71 95 07/24/23 22:52 63 18 172/86 96 07/24/23 20:29 98.2 F 64 18 210/93 99 Intake and Output 07/24/23 07/25/23 07/25/23 22:59 06:59 14:59 Other: Weight 58.967 kg Patient is an elderly female, very pleasant, in no acute distress. Patient is alert awake oriented to time place and person. Speech and language f unctions are normal. Patient can name and repeat very well. No aphasia, or dysarthria. Attention, concentration and fund of knowledge is adequate. On cranial nerve examination, pupils are equal, round and reacting to light, visual gonzales are full on confrontation, with no neglect on double simultaneous stimulation. Extraocular muscles are intact with no nystagmus. Face is symmetric. Her tongue protrudes to the midline. Palatal elevation and sensation normal, hearing and shoulder shrug normal, facial sensation normal. On muscle strength testing, there is no pronator drift and the strength is normal in arms and legs distally and proximally. Deep tendon reflexes are symmetric 1 at the biceps, 1 brachioradialis, 3 at the knees, 1+ ankles and plantars are downgoing bilaterally. Sensory to touch is equal with no neglect on double simultaneous stimulation. Cerebellar function showed no ataxia for [id number] testing on either side. No dysdiadochokinesia. No ataxia for [id number] testing on either side. Tone and bulk of muscles normal. Gait deferred.. On general examination, there is no carotid bruit or murmur, S1-S2 audible. Chest is clear on consultation. Abdomen is soft nontender. No organomegaly, bowel sounds present. Peripheral pulses are present. No peripheral edema. Results - Laboratory Findings CBC and BMP: 07/24/23 21:30 07/24/23 21:30 Abnormal Lab Findings: Abnormal Labs 07/24/23 07/24/23 07/24/23 21:30 21:30 21:42 Hgb 11.3 L Lymphocytes # 0.7 L Sodium 134 L BUN 21 H Glucose 123 H AST 40 H Ur Leukocyte Esterase Large H Urine WBC 13 H Amorphous Sediment Rare H Urine Bacteria Many H Assessment and Plan Assessment: * Dizziness, nausea, generalized weakness, unclear cause. Perhaps related to uncontrolled blood pressure. * Hypertension, not controlled. On arrival blood pressure was 210/93, but better controlled now * Hyperlipidemia Plan: * Patient's neurological examination is normal. No focal symptoms or louann rological deficits noted. Current NIH stroke scale 0. * Her current symptoms likely related to uncontrolled blood pressure, doubt TIA. * CT head reported new from 04/11/2023, hypodense area in the left handley radiata. Further evaluation with MRI recommended. Findings compatible with age-in determinate CVA. I personally reviewed CT head agree with the findings. It definitely appears stroke in chronic stage. On comparing the current CT head with previous MRI brain, it appears this area of ischemia is in the same distribution where the stroke happened acutely on 04/13/2023. No new areas of ischemia. * Workup performed recent admission 04/2023 include: * 2-D echo revealed negative bubble study with no evidence of shunting. Normal left ventricle size and systolic function with EF 55-60%. Mild MR and TR. Mild to moderate AR and mild aortic stenosis. * CTA head and neck showed: Mild plaque noted at the bilateral carotid bulb. Estimated diameter reduction is 50% on either side. Vertebral arteries are patent. * Fasting a.m. lipid panel with cholesterol 248, LDL 152, HDL 77 and triglycerides 88. Patient was not taking any statins. Continue Lipitor 40 mg daily. * Hemoglobin A1c 6.4, consistent with prediabetes. Patient recommended healthy lifestyle's, watch her diet. * Optimize control of blood pressure. * Patient has just stopped taking Plavix on Wednesday, 3 days prior to arrival. Patient will resume Plavix 75 mg and aspirin 81 mg (not twice daily). * Continue Pepcid 20 mg twice daily for gastric ulcer prophylaxis * Vitamin B12 2217, folate 29.9, both normal. * If remains stable overnight, then clear for discharge. Discussed with patient's son and [id number] as well. Dr. Jose Silva starting neurology service from the morning. * Thank you for the consult.
[2023-07-25] MEDS: ATORVASTATIN 40 MG TAB PO SCH (22:17)
[2023-07-25] MEDS: FAMOTIDINE 20 MG/2 ML VIAL IV SCH (22:17)
[2023-07-25] MEDS: HEPARIN SODIUM,PORCINE 5,000 UNIT/ML 1 ML VIAL SQ SCH (22:17)
[2023-07-26 04:12] LABS: Partial Thromboplastin Time 28.9 sec (22.0-30.0); Prothrombin Time 10.6 sec (10.0-12.5)
[2023-07-26 06:21] VITALS: TEMP 98.1
[2023-07-26 09:07] VITALS: RESP 16
[2023-07-26] MEDS: ASPIRIN 81 MG PO SCH (09:50)
[2023-07-26 11:20] VITALS: BP 126/68; PULSE 77
--- NOTE | 2023-07-27 15:45 | P.DS ---
Providers Date of admission: 07/24/23 23:23 Attending physician: Neena Eli Consults: 07/24/23 22:59 Consult Physician Urgent Consulting Provider: Uriel Santiago Consult Reason/Comments: CVA Do you want consulting provider notified?: Yes, Notify in am Primary care physician: Keiry Ordoñez Hospital Course: Final Diagnosis Possible subacute versus recent stroke worsened by hypertension urgency which were present on admission Vertigo secondary to above Recent history of TIA on dual antiplatelet therapy Hyperlipidemia Hypertension with urgency on admission Discharge Disposition Medically patient stable for discharge. She has been started on amlodipine 5 mg daily for improved blood pressure control. Additionally patient will continue on dual antiplatelet therapy with aspirin 81 mg daily and Plavix 75 mg daily. Patient to follow up with her neurologist Dr. Ochoa in 1 to 2 weeks. Patient to see her PCP Dr. Keiry Ordoñez in 2 to 3 days. Hospital Course This is a pleasant 87-year-old female with medical history of recent TIA, hyperlipidemia, hypertension, vertigo. Patient comes into the hospital complains of dizziness vertigo nausea over few days duration. Patient was recently diagnosed with a TIA at the end of April she sees Dr. Ochoa outpatient. Patient at time had symptoms of numbness and weakness in the right hand and right leg was put on aspirin and Plavix. Patient recently stopped Plavix 3 days ago. She comes in now with complaints of room spinning does [place] any ear pain discharge or nose or throat problem. Has had no chills or fever no cough or shortness of breath. Patient generally feels weak but is able to walk at baseline. She came in with a blood pressure of 210/93 she had urinalysis with slightly abnormal but no urinary symptoms. All of her other blood work was unremarkable. EKG shows normal sinus rhythm with no significant ST or T wave changes. Chest x-ray was negative for an acute process but does reveal COPD and calcified granuloma in the right upper lung. CT brain showed hypodense area in the left handley radiator of age-indeterminate. Patient was admitted to the consultation to neurology. Neurological evaluation of the brain imaging felt that these were chronic changes and patient does not have any acute deficits. They are recommending patient to resume Plavix therapy and to continue on the dual antiplatelet therapy and follow-up with her neurologist on discharge. Patient is evaluated in the ER was pending bed for the medical floor she has no acute complaints and her symptoms of dizziness and vertigo have since resolved and blood pressure has improved. Will be discharged home. Please see medication reconciliation for a list of current medications. Thank you for allowing us to participate in the care of this patient. The impression and plan of care has been dictated by Daria Estrada, Nurse Practitioner as directed. Dr. Kandis MD I have performed a history and physical examination and medical decision making of this patient, discussed the same with the dictator, and agree with the dictators assessment and plan as written, documented as a scribe. Based on total visit time, I have performed more than 50% of this visit. Patient Condition at Discharge: Stable Plan - Discharge Summary New Discharge Prescriptions: New amLODIPine [Norvasc] 5 mg PO DAILY #30 tab Famotidine [Pepcid] 20 mg PO DAILY #30 tablet Clopidogrel [Plavix] 75 mg PO DAILY #30 tab Continue lisinopriL [Zestril] 10 mg PO BID Acetaminophen Tab [Tylenol] 650 mg PO Q6HR PRN tab PRN Reason: Mild Pain Or Fever > 100.5 Ondansetron Odt [Zofran ODT] 4 mg PO Q8HR PRN #20 tab PRN Reason: Nausea Aspirin 162 mg PO DAILY 30 Days #60 tab Ginkgo Biloba(Unknown Dose) 1 tab PO DAILY Multivitamins, Thera [Multivitamin (formulary)] 1 tab PO DAILY Atorvastatin [Lipitor] 40 mg PO HS #30 tab Fish Oil(Unknown Dose) 1 cap PO HS Discharge Medication List Multivitamins, Thera [Multivitamin (formulary)] 1 tab PO DAILY 04/11/23 [History] lisinopriL [Zestril] 10 mg PO BID 04/11/23 [History] Acetaminophen Tab [Tylenol] 650 mg PO Q6HR PRN tab 04/13/23 [Rx] Aspirin 162 mg PO DAILY 30 Days #60 tab 04/13/23 [Rx] Atorvastatin [Lipitor] 40 mg PO HS #30 tab 04/13/23 [Rx] Ondansetron Odt [Zofran ODT] 4 mg PO Q8HR PRN #20 tab 04/13/23 [Rx] Fish Oil(Unknown Dose) 1 cap PO HS 07/25/23 [History] Ginkgo Biloba(Unknown Dose) 1 tab PO DAILY 07/25/23 [History] Clopidogrel [Plavix] 75 mg PO DAILY #30 tab 07/26/23 [Rx] Famotidine [Pepcid] 20 mg PO DAILY #30 tablet 07/26/23 [Rx] amLODIPine [Norvasc] 5 mg PO DAILY #30 tab 07/26/23 [Rx] Follow up Appointment(s)/Referral(s): Nelson Rader MD [Medical Doctor] - 2 Weeks (Cardiology, Hypertension new patient Spoke to Roseline. She will jonelle you with appointment time ) Nahum Ochoa DO [STAFF PHYSICIAN] - 1 Week (Office is currently closed. Please call to schedule appointment) Keiry Ordoñez MD [Primary Care Provider] - 07/28/23 11:20 am (Wednesday) Patient Instructions/Handouts: Transient Ischemic Attack (DC), Ischemic Stroke (DC) Discharge Disposition: HOME SELF-CARE
== END 2023-07-26 14:34 | disposition home or self-care (01) | DRG 65 ==
LOC: EC 20:25 → 3SCARD 23:23
PROVIDERS: ADMIT Hospitalist; ATTEND Hospitalist
DX: I63.9 Cerebral infarction, unspecified (principal); G81.91 Hemiplegia, unspecified affecting right dominant side; J84.10 Pulmonary fibrosis, unspecified; J44.9 Chronic obstructive pulmonary disease, unspecified; I16.0 Hypertensive urgency; I10 Essential (primary) hypertension; E78.5 Hyperlipidemia, unspecified; R20.0 Anesthesia of skin; R29.700 NIHSS score 0; R42 Dizziness and giddiness; Z86.73 Personal history of transient ischemic attack (TIA), and cerebral infarction without residual deficits; Z79.02 Long term (current) use of antithrombotics/antiplatelets; Z79.82 Long term (current) use of aspirin; Z79.899 Other long term (current) drug therapy
CPT/HCPCS: 36415; 70450; 71046; 80053; 81001; 83605; 84484; 85025; 85610; 85730; 93005; 93270